=== PATIENT | female | born 1985 | race Caucasian/White ===

== ENCOUNTER 2022-06-30 06:48 | Day surgery (SDC) | payer BC ==
[2022-06-30] MEDS ORDERED: DEXMEDETOMIDINE 80 MCG/20ML-NS IV ONE (06:49)
[2022-06-30] MEDS ORDERED: CEFAZOLIN 2 GM-D5W BAG** 2 GM/50 ML ML IV ONE (07:16)
[2022-06-30] MEDS ORDERED: Lactated Ringers 1,000 ML IV ONE ×2 (07:16→09:57)
[2022-06-30] MEDS ORDERED: Lactated Ringers 1,000 ML IV SCH (07:30)
[2022-06-30] MEDS ORDERED: CEFAZOLIN 2 GM-D5W BAG** 2 GM/50 ML ML IV SCH (07:30)
[2022-06-30 08:00] LABS: Basophil (Absolute #) 0.03 x10^3/uL (0-0.4); Eosinophil (Absolute #) 0.09 x10^3/uL (0-0.5); Hematocrit 34.5 % (35-47); Hemoglobin 11.3 g/dL (12.0-16.0); Lymphocyte (Absolute #) 2.34 x10^3/uL (1.0-4.6); Mean Cell Volume 91.8 fL (78-100); Mean Corpuscular Hemoglobin 30.1 pg (26-32); Mean Corpuscular Hgb Concent. 32.8 g/dL (32-36); Mean Platelet Volume 11.4 fL (7.5-11.0); Monocyte (Absolute #) 0.56 x10^3/uL (0.0-1.3); Neutrophil % 67.2 % (36.0-66.0); Platelet Count 242 x10^3/uL (150-450); Red Blood Count 3.76 x10^6/uL (4.1-5.4); White Blood Count 9.4 x10^3/uL (4.0-10.5)
[2022-06-30] MEDS ORDERED: Transderm Scop 1.5MG Patch TOP ONE (08:29)
[2022-06-30] MEDS ORDERED: Transderm Scop 1.5MG Patch ONE (08:30)
[2022-06-30] MEDS ORDERED: Reglan 10 MG/2 ML IV ONE (09:02)
[2022-06-30] MEDS ORDERED: Pepcid 20 MG VIAL IV ONE ×2 (09:03→09:04)
[2022-06-30] MEDS ORDERED: Reglan 10 MG/2 ML ONE (09:04)
[2022-06-30] MEDS ORDERED: Decadron 4 MG INJ ONE (09:13)
[2022-06-30] MEDS ORDERED: Quelicin Fliptop 200 MG/10 ML ONE (09:13)
[2022-06-30] MEDS ORDERED: DIPRIVAN 200 MG/20 ML IV ONE (09:14)
[2022-06-30] MEDS ORDERED: SUBLIMAZE 100 MCG/2 ML ONE (09:15)
[2022-06-30] MEDS ORDERED: Versed 2 MG/2 ML Injection ONE (09:15)
[2022-06-30] MEDS ORDERED: Zofran 4 MG/2 ML VIAL ONE (09:35)
[2022-06-30] MEDS ORDERED: XYLOCAINE 1%/Epi 1:100000 MDV 20 ML ONE ×2 (09:37→09:41)
[2022-06-30] MEDS ORDERED: TORAdol 30 mg Injection ONE (09:37)
[2022-06-30 11:25] LABS: Appearance CLEAR (CLEAR); Bilirubin NEGATIVE (NEGATIVE); Dipstick done @ ? MAIN LAB; Glucose NEGATIVE (NEGATIVE); Ketones NEGATIVE (NEGATIVE); Mucus SLIGHT /HPF (NEGATIVE); Nitrite NEGATIVE (NEGATIVE); Protein,Urine Dip NEGATIVE (Negative); RBC NEGATIVE Ery/ul (0-5); Urobilinogen 0.2 mg/dL (0-1)
[2022-06-30 11:40] VITALS: BP 109/73; PULSE 69; O2SAT 97
--- NOTE | 2022-07-01 08:51 | OP ---
SURGERY DATE/TIME: 06/30/202215 PREOPERATIVE DIAGNOSIS: Rectocele. POSTOPERATIVE DIAGNOSIS: Rectocele. PROCEDURE: Posterior repair or posterior colporrhaphy. SURGEON: Konstantin Prasad D.O. FORESTRY EXTENSION SPECIALIST: Gia Robins, Tomasa Mccabe, surgical techs. ANESTHESIA: General. ESTIMATED BLOOD LOSS: Minimal less than 60 cc. COMPLICATIONS: None. INDICATIONS: The risks, benefits, indications, alternatives to the procedure were reviewed with the patient prior to procedure. The patient understood the risk of infection, bleeding, bowel injury, bladder injury, pelvic infection and thromboembolic disorder associated with the surgery and desires to have this surgery as a possible means to alleviate her current medical condition. DESCRIPTION OF PROCEDURE AND FINDINGS: At this point, the patient is taken to the operating room, given general sedation, placed in dorsal lithotomy position, prepped and draped in the usual sterile fashion. From this point a dilute lidocaine with epinephrine was placed and approximately 15 to 20 cc were used to infiltrate under the posterior vaginal mucosa midline into the peritoneal body. At this point a transverse incision was cut into the perineum. The posterior vaginal wall was opened vertically in midline up to apex of the rectocele. The cut edges were held and splayed laterally with a series of Allis clamps. The open vaginal mucosa was then dissected laterally with a combination of sharp and blunt dissection exposing the perirectal fascia. The perirectal fascia was then re-approximated with interrupted 2-0 Vicryl sutures to draw the lateral folds together and tuck the rectocele back. From this point, the excess vaginal mucosa was then trimmed. The posterior vaginal wall was then closed with a running locked 0 Vicryl to the hymenal tags. The superficial peritoneal muscles were closed with running locked 0 Vicryl and the peroneal skin was closed with running subcuticular 2-0 Vicryl suture. From this point all instruments were removed from the patient's vaginal region. The patient was taken out of anesthesia and was then taken to the recovery room in stable condition. All instrument and laps were accounted for x2.
== END 2022-06-30 11:43 | disposition home or self-care (01) ==
LOC: SDC 06:48
PROVIDERS: ATTEND Obstetrics & Gynecology
DX: N81.6 Rectocele (principal)
CPT/HCPCS: 36415; 81001; 85025; 87086; J0330; J0690; J1100; J1885; J2250; J2405; J2704; J3010; A9270-GY

== ENCOUNTER 2024-12-04 00:21 | Emergency (ER) | payer BC ==
--- NOTE | 2024-12-04 00:31 | ERPHSYRPT ---
- History of Present Illness Source: patient Exam Limitations: no limitations Physician History: Patient has a laceration to her left forearm. Its on the volar surface. It is about 2 inches in length. It is deep into the subcutaneous tissue.It happened just prior to arrival. She does still need a tetanus shot. Severity of Pain-Max: moderate Severity of Pain-Current: moderate Modifying Factors: Improves With: nothing Allergies/Adverse Reactions: clindamycin Allergy (Verified 06/30/22 07:14) Hives sulfamethoxazole [From Bactrim] Allergy (Verified 06/30/22 07:14) Hives trimethoprim [From Bactrim] Allergy (Verified 06/30/22 07:14) Hives Home Medications: Dextroamphetamine/Amphetamine [Adderall Xr 20 mg Capsule] 20 mg PO BID 04/23/22 [History] Hx Tetanus, Diphtheria Vaccination/Date Given: Yes - Review of Systems Constitutional: No Symptoms Eyes: No Symptoms Neurological: No Symptoms - Past Medical History Other Medical History: Rectocele, tubal - Past Surgical History Female Surgical History: Other Other Surgical History: partial hysterectomy - Physical Exam General Appearance: no apparent distress Comments: The left forearm on the volar surface has a 2 cm laceration. It was explored in a bloodless field. There is no foreign material and there. Bleeding was not well-controlled until we put a pressure wrap on it for about 30 minutes. The wound was then explored sterile technique was used. It was anesthetized with 2% lidocaine without. It was then repaired with 4-0 Ethilon and vertical mattress and simple interrupted sutures. Ordered Tests: Medication Summary Discontinued Medications Generic Name Dose Route Start Last Admin Trade Name Nuha PRN Reason Stop Dose Admin Diphtheria/Tetanus/Acell Pertussis 0.5 ml 12/04/24 00:23 Tdap --Diph,Pertuss(Acell),Tet Vac/Pf 0.5 Ml Vial IM 12/04/24 00:24 .ONCE ONE Diphtheria/Tetanus/Acell Pertussis Confirm 12/04/24 01:10 Tdap --Diph,Pertuss(Acell),Tet Vac/Pf 0.5 Ml Vial Administered 12/04/24 01:11 Dose 0.5 ml IM .STK-MED ONE Lidocaine HCl 5 ml 12/04/24 00:37 Lidocaine Hcl 2% 20 Ml Mdv IJ 12/04/24 00:38 STAT STA Lidocaine HCl Confirm 12/04/24 00:36 Lidocaine Hcl 2% 20 Ml Mdv Administered 12/04/24 00:37 Dose 1 ml .ROUTE .SometricsMED ONE - Progress Progress: improved Medical Desision Making - Risk of complications Minimal Risk: Minimal risk of morbidity - Departure Departure Disposition: Home Clinical Impression: Laceration of left forearm Condition: Stable Critical Care Time: No Referrals: COLEEN KHOURY NP [Primary Care Provider] - Follow up/PCP as directed Instructions: Laceration Repair With Stitches (DC)
[2024-12-04] MEDS ORDERED: XYLOCAINE 2% HCL 20 ML MDV ONE (00:36)
[2024-12-04] MEDS ORDERED: Adacel Vial IM ONE (01:10)
[2024-12-04] MEDS ORDERED: Augmentin 875-125 Tablet ONE (01:21)
[2024-12-04] MEDS: Augmentin 875-125 Tablet PO ONE (01:22)
[2024-12-04] MEDS: Adacel Vial IM ONE (01:23)
[2024-12-04] MEDS: XYLOCAINE 2% HCL 20 ML MDV IJ STA (01:23)
[2024-12-04 02:10] VITALS: RESP 18; TEMP 99
[2024-12-04 02:12] VITALS: BP 124/93; PULSE 88; O2SAT 99
== END 2024-12-04 01:53 | disposition home or self-care (01) ==
LOC: ED 00:21
DX: S51.812A Laceration without foreign body of left forearm, initial encounter (principal); Z79.899 Other long term (current) drug therapy; Z23 Encounter for immunization
CPT/HCPCS: 12001; 90471; 90715; 99283; A9270-GY